=== PATIENT | male | born 1940 | race Caucasian/White ===

== ENCOUNTER 2017-09-12 10:21 | Day surgery (SDC) | payer MEDICARE, OTHER ==
[2017-09-11 16:27] VITALS: BMI 29.7
[2017-09-12] MEDS ORDERED: Fentanyl 100 MCG/2 ML VIAL ONE (11:16)
[2017-09-12] MEDS ORDERED: Midazolam HCl 2 mg/2 ml Vial ONE (11:16)
--- NOTE | 2017-09-12 15:40 | MRI ---
NONCONTRAST MRI CERVICAL SPINE: Date: 09/12/17 HISTORY: Neck pain. Patient states right wrist no working appropriately for last two months. FINDINGS: Visualized base of the brain demonstrates mild cerebral and cerebellar volume loss. Cervicomedullary junction has a normal MRI appearance. Mild end plate degenerative changes are seen at the C5-6 level. Otherwise, normal signal intensity is demonstrated within the bone marrow. There is mild straightening of the normal cervical lordotic curvature, which may be related to muscle spasm or positioning. C2-3 Level: There is minimal disc osteophyte complex which narrows the ventral subarachnoid space. There are face t hypertrophic changes on the left. Findings result in mild to moderate left-sided neural foraminal n arrowing. The right neural foramen is patent. There is mild effacement of the ventral subarachnoid sp arsh. C3-4 Level: There is loss of intervertebral disc height. There is a broad based disc osteophyte complex with face t hypertrophic changes present. This results in generalized mild narrowing of the central spinal shaila l. There is mild right and moderate to severe left-sided neural foraminal narrowing. C4-5 Level: There is trace anterolisthesis of C4 on C5. There is loss of intervertebral disc height. There is a b road based disc osteophyte complex present. Findings result in generalized mild narrowing of the cent ral spinal canal. Mild facet hypertrophic changes are present. There is generalized narrowing of the central spinal canal. There is moderate to severe bilateral neural foraminal narrowing. C5-6 Level: There is trace retrolisthesis of C5 on C6. There is loss of intervertebral disc height. There is a br oad based disc osteophyte complex resulting in mild generalized narrowing of the central spinal canal . There is flattening of the spinal cord at this level, but normal signal intensity is present in the spinal cord. There is severe bilateral neural foraminal narrowing. C6-7 Level: There is loss of the intervertebral disc height. There is a broad based disc osteophyte complex. Find ings result in mild generalized narrowing of the central spinal canal. There is moderate to severe bi lateral neural foraminal narrowing. There is slight flattening of the anterior aspect of the spinal c ord. C7-T1 Level: There is mild broad based disc osteophyte complex. This narrows the ventral subarachnoid space. There is mild right and moderate left-sided neural foraminal narrowing. T1-2 Level: There is minimal disc osteophyte complex. However, there is no narrowing of the central spinal canal and the neural foramina are patent. 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 POS: ANNEMARIE
== END 2017-09-12 16:34 | disposition home or self-care (01) ==
LOC: SDC/OP 10:21
PROVIDERS: ATTEND Psychiatry & Neurology Neurology
DX: M48.02 Spinal stenosis, cervical region (principal); M50.30 Other cervical disc degeneration, unspecified cervical region; G25.81 Restless legs syndrome
CPT/HCPCS: 72141; 93005; 93010; J2250; J3010

== ENCOUNTER 2017-10-21 10:12 | Day surgery (SDC) | payer MEDICARE, OTHER ==
[2017-10-20 16:57] VITALS: BMI 30.5
[2017-10-21] MEDS ORDERED: Midazolam HCl 2 mg/2 ml Vial ONE (15:27)
[2017-10-21] MEDS ORDERED: Fentanyl 100 MCG/2 ML VIAL ONE (15:27)
[2017-10-21] MEDS ORDERED: Propofol 1,000 MG/100 ML VIAL IV ONE (15:27)
[2017-10-22 12:39] LABS: ANA Symphony (Qualitative) Negative (Negative); dsDNA IgG Antibody 0.9 IU/mL (<10 Negative)
== END 2017-10-21 18:05 | disposition home or self-care (01) ==
LOC: SDC/OP 10:12 → EDSTATUS 13:00 → SDC/OP 18:05
PROVIDERS: ATTEND Psychiatry & Neurology Neurology
DX: R53.1 Weakness (principal); I10 Essential (primary) hypertension; E03.9 Hypothyroidism, unspecified; K21.9 Gastro-esophageal reflux disease without esophagitis; G25.81 Restless legs syndrome; Z79.899 Other long term (current) drug therapy
CPT/HCPCS: 36415; 82550; 85652; 86038; 86225; J2250; J2704; J3010